=== PATIENT | female | born 1980 | race Caucasian/White ===

== ENCOUNTER 2017-03-29 12:10 | Emergency (ER) | payer MEDICAID ==
[~2017-03-29] VITALS: Ht 160 cm; Wt 55.7 kg
[~2017-03-29 12:10] MED LIST: HYDR-3498 PO; NITR-58 PO
[2017-03-29 12:12] VITALS: Ht 160 cm; Wt 55.7 kg
[2017-03-29] MEDS ORDERED: ACETAMINOPHEN 500 MG TAB PO STA (14:04)
[2017-03-29] MEDS ORDERED: OSLT75C PO (14:07)
[2017-03-29] MEDS ORDERED: IBUP-1542 PO (14:07)
--- NOTE | 2017-03-29 14:14 | ERD ---
ER Documentation Chief Complaint Chief Complaint FEVER , HEADCAHE , SORE THROAT X 1 DAY HPI This 36-year-old female presents with a one-day history of fever, sore throat, dry cough and body aches. She denies vomiting, abdominal pain, urinary complaints, neck stiffness, rashes. ROS All systems reviewed and are negative except as per history of present illness. Medications Home Meds Active Scripts Oseltamivir Phosphate* (Tamiflu*) 75 Mg Capsule, 75 MG PO BID for 5 Days, CAP Prov:CLAUDINE ALLEN MD 03/29/17 Ibuprofen* (Motrin*) 600 Mg Tab, 600 MG PO Q6, #20 TAB Prov:CLAUDINE ALLEN MD 03/29/17 Hydrocodone Bit-Acetaminophen* ([place]*) 5-325 Mg Tab, 1 TAB PO Q6 Y for PAIN, # 7 TAB Prov:ARSENIO FORBES PA-C 10/26/15 Nitrofurantoin Monohyd Macrocr* (Macrobid*) 100 Mg Capsr, 100 MG PO BID for 7 Days, CAP Prov:ARSENIO FORBES PA-C 10/26/15 PMhx/Soc Hx Alcohol Use: No Hx Substance Use: No Hx Tobacco Use: No Physical Exam Vitals Vital Signs Date Time Temp Pulse Resp B/P Pulse Ox O2 Delivery O2 Flow Rate FiO2 03/29/17 12:12 101.0 98 18 133/76 98 Physical Exam Const: [] Head: Atraumatic Eyes: Normal Conjunctiva ENT: Normal External Ears, Nose and Mouth. Neck: Full range of motion..~ No meningismus. Resp: Clear to auscultation bilaterally Cardio: Regular rate and rhythm, no murmurs Abd: Soft, non tender, non distended. Normal bowel sounds Skin: No petechiae or rashes Back: No midline or flank tenderness Ext: No cyanosis, or edema Neur: Awake and alert Psych: Normal Mood and Affect Results 24 hrs Current Medications Medications (Trade) Dose Ordered Sig/[place] Route PRN Reason Start Time Stop Time Status Last Admin Dose Admin Ibuprofen (Motrin) 600 mg ONCE ONCE PO 03/29/17 14:30 03/29/17 14:31 Acetaminophen (Tylenol Tab) 500 mg ONCE STAT PO 03/29/17 14:04 03/29/17 14:05 DC Procedures/MDM Patient presents with febrile illness and URI symptoms and body aches suggestive of influenza. Is no evidence of hypoxemia, signs of respiratory distress, abdominal pain, meningitis, additional emergent causes of fever. She will treated with Tamiflu, fever control return precautions and primary care follow-up. The patient was stable with no new complaints during the ER course. Clinically, there is no current evidence to suggest meningitis, sepsis, acute abdomen, pneumonia, acute coronary syndrome, pulmonary embolism, or any other emergent condition appearing to require further evaluation or hospitalization. The patient should certainly return for any new or worsening symptoms per the aftercare instructions. They should otherwise follow-up with her primary care doctor for reevaluation this week. Departure Diagnosis: Primary Impression: Fever Fever type: unspecified Qualified Code: R50.9 - Fever, unspecified fever cause Additional Impression: Upper respiratory infection URI type: unspecified URI Qualified Code: J06.9 - Upper respiratory tract infection, unspecified type Condition: Stable Patient Instructions: Fever Control (Child), Influenza (Adult) Additional Instructions: probablamente flu que dura 2-4 burciaga. cheque otro vez en el proximo lissette para mas simptomas- vomito, dolor, seb, problemas con respirando, o con tucker doctor primario. CLAUDINE ALLEN MD Mar 29, 2017 14:14
[2017-03-29] MEDS ORDERED: IBUPROFEN 600 MG TAB PO ONE (14:30)
== END 2017-03-29 14:23 | disposition home or self-care (01) ==
LOC: FTE 12:10
DX: J06.9 Acute upper respiratory infection, unspecified (principal)
CPT/HCPCS: Z7502; Z7610; 99283